=== PATIENT | male | born 1990 | race Caucasian/White ===

== ENCOUNTER 2017-08-05 09:03 | Emergency (ER) | payer OTHER ==
[~2017-08-05] VITALS: Ht 182.9 cm; Wt 115.3 kg
[~2017-08-05 09:03] MED LIST: FLEXERIL10 MG PO; TAMIFLU75 MG PO; TORADOL10 MG PO
[2017-08-05 09:11] VITALS: BP 145/89
[2017-08-05] MEDS ORDERED: LORATADINE10 M2 PO (10:16)
== END 2017-08-05 10:36 | disposition home or self-care (01) ==
LOC: EME 09:03
DX: J02.8 Acute pharyngitis due to other specified organisms (principal); B96.89 Other specified bacterial agents as the cause of diseases classified elsewhere; J30.2 Other seasonal allergic rhinitis
CPT/HCPCS: 99281; 99284; J0561; J1100; J1885